=== PATIENT | male | born 1930 | race Caucasian/White ===

== ENCOUNTER 2017-09-01 08:53 | Outpatient (CLI) | payer MEDICARE, OTHER ==
[~2017-09-01] VITALS: Ht 182.9 cm; Wt 81.6 kg
[~2017-09-01 08:53] MED LIST: CHOLESTEROL PO; CLAR500T2 PO; FERR-57 PO; FERR240T9 PO; FLC1T PO; LISI40TA PO; LOVA40TA2 PO; METR500T PO; PANT20TA2 PO; WARF2.5T PO; WRF5T PO
[2017-09-01] MEDS ORDERED: WARF-48 PO ×2 (12:21)
[2017-09-01] MEDS ORDERED: LISI40TA PO (12:21)
[2017-09-01] MEDS ORDERED: FINA5TAB6 PO (12:21)
[2017-09-01] MEDS ORDERED: PANT40TA3 PO (12:21)
== END 2017-09-01 12:23 ==
LOC: PREOP 08:53
PROVIDERS: ATTEND Surgery
DX: Z01.818 Encounter for other preprocedural examination (principal); D64.9 Anemia, unspecified

== ENCOUNTER 2017-09-03 11:18 | Day surgery (SDC) | payer MEDICARE, OTHER ==
[~2017-09-03] VITALS: Ht 182.9 cm; Wt 81.6 kg
[~2017-09-03 11:18] MED LIST changes: +FINA5TAB6 PO; +PANT40TA3 PO; +WARF-48 PO
--- OUTSIDE RECORDS SUMMARY | 2017-09-03 11:26 | XMS REPORT | Continuity of Care Document ---
Author Author [facility] Organization [facility] Address Unknown Phone Unavailable Allergies Active Description Code Type Severity Reaction Onset Reported/Identified Relationship to Patient Clinical Status Yes codeine [id number] Drug Allergy Unknown N/A 02/18/2014 Medications There is no data. Problems Date Dx Coded Attending Type Code Diagnosis Diagnosed By 02/27/2014 KIM RUSS DO Ot 041.86 02/27/2014 KIM RUSS DO Ot 272.0 02/27/2014 KIM RUSS DO Ot 280.9 02/27/2014 KIM RUSS DO Ot 285.1 02/27/2014 KIM RUSS DO Ot 309.81 02/27/2014 KIM RUSS DO Ot 401.9 02/27/2014 KIM RUSS DO Ot 427.31 02/27/2014 KIM RUSS DO Ot 455.0 02/27/2014 KIM RUSS DO Ot 455.3 02/27/2014 KIM RUSS DO Ot 458.9 02/27/2014 KIM RUSS DO Ot 530.11 02/27/2014 KIM RUSS DO Ot 535.10 02/27/2014 KIM RUSS DO Ot 553.3 02/27/2014 KIM RUSS DO Ot 558.9 02/27/2014 KIM RUSS DO Ot 562.12 02/27/2014 KIM RUSS DO Ot 569.49 02/27/2014 KIM RUSS DO Ot V15.82 02/27/2014 KIM RUSS DO Ot V58.61 06/11/2014 REUBEN ASHLEY, BHARAT Sheppard Ot 492.8 06/11/2014 REUBEN ASHLEY, BHARAT Sheppard Ot 518.89 06/11/2014 REUBEN ASHLEY, BHARAT Sheppard Ot 753.10 06/11/2014 REUBEN ASHLEY, BHARAT Sheppard Ot 785.6 06/15/2014 REUBEN ASHLEY, BHARAT A Ot 492.8 06/15/2014 REUBEN ASHLEY, BHARAT A Ot 518.89 06/15/2014 REUBEN ASHLEY, BHARAT Sheppard Ot 753.10 06/15/2014 REUBEN ASHLEY, BHARAT Sheppard Ot 785.6 06/26/2014 HOWIE ASHLEY, ROXANNE S Ot 793.11 07/17/2014 HOWIE ASHLEY, ROXANNE S Ot 793.11 01/10/2015 HOWIE ASHLEY, ROXANNE S Ot 793.11 02/01/2015 HOWIE ASHLEY, ROXANNE S Ot 793.11 12/06/2015 Ot 784.7 EPISTAXIS 01/06/2016 KURT YOUNG MD Ot 427.31 ATRIAL FIBRILLATION 01/06/2016 KURT YOUNG MD Ot 578.1 BLOOD IN STOOL 01/06/2016 KURT YOUNG MD Ot V58.61 ANTICOAGULANTS,LT,CURRENT USE 02/06/2016 KURT YOUNG MD Ot 427.31 ATRIAL FIBRILLATION 02/06/2016 KURT YOUNG MD Ot 578.1 BLOOD IN STOOL 02/06/2016 KURT YOUNG MD Ot V58.61 ANTICOAGULANTS,LT,CURRENT USE 03/07/2016 Ot 784.7 EPISTAXIS 03/07/2016 KURT YOUNG MD Ot 427.31 ATRIAL FIBRILLATION 03/07/2016 KURT YOUNG MD Ot 578.1 BLOOD IN STOOL 03/07/2016 KURT YOUNG MD Ot V58.61 ANTICOAGULANTS,LT,CURRENT USE 06/07/2016 Ot 784.7 EPISTAXIS 07/08/2016 KURT YOUNG MD Ot 427.31 ATRIAL FIBRILLATION 07/08/2016 KURT YOUNG MD Ot 578.1 BLOOD IN STOOL 07/08/2016 KURT YOUNG MD Ot V58.61 ANTICOAGULANTS,LT,CURRENT USE 08/05/2016 Ot 784.7 EPISTAXIS Procedures There is no data. Results There is no data. Encounters ACCT No. Visit Date/Time Discharge Status Pt. Type Provider Facility Loc./Unit Complaint [id number] 12/03/2014 09:41:00 12/03/2014 23:59:59 CLS Outpatient ROXANNE DENISE MD [facility] RAD [id number] 05/29/2014 10:43:00 05/29/2014 23:59:59 CLS Outpatient ROXANNE DENISE MD [facility] RAD [id number] 05/10/2014 08:09:00 05/10/2014 23:59:59 CLS Outpatient BHARAT ALEXIS MD [facility] RAD [id number] 02/18/2014 19:51:00 02/27/2014 12:20:00 DIS Inpatient KIM RUSS DO [facility] SURGICAL [id number] 02/17/2014 09:50:00 02/17/2014 11:25:00 DIS Outpatient HANNAH ASHLEY, KURT Martinez [facility] ER BLOOD IN STOOL [id number] 07/14/2013 09:31:00 07/14/2013 23:59:59 CLS Outpatient [id number] 05/25/2010 14:08:00 Document Registration
[2017-09-03] MEDS ORDERED: NS IV 500 ML 500 ML ONE (11:29)
[2017-09-03] MEDS ORDERED: NS IV 500 ML 500 ML IV PRN (11:31)
[2017-09-03 11:42] VITALS: BP 164/91
[2017-09-03] MEDS ORDERED: LIDOCAINE JELLY 2% (XYLOCAINE) 5 ML TUBE MM PRN (11:45)
[2017-09-03] MEDS ORDERED: fentaNYL INJECTION 100 MCG/2 ML AMP ONE (11:45)
[2017-09-03] MEDS ORDERED: MIDAZOLAM 2 MG/2 ML (VERSED) VIAL IVP PRN (11:45)
[2017-09-03] MEDS ORDERED: MIDAZOLAM 2 MG/2 ML (VERSED) VIAL ONE ×4 (11:45→12:31)
[2017-09-03] MEDS ORDERED: HURRICAINE EXT TUBE (BENZOCAINE) XX PRN (11:45)
[2017-09-03] MEDS ORDERED: fentaNYL INJECTION 100 MCG/2 ML AMP IVP PRN (11:45)
[2017-09-03] MEDS ORDERED: LIDOCAINE JELLY 2% (XYLOCAINE) 5 ML TUBE ONE (11:46)
[2017-09-03] MEDS ORDERED: proPOfol 200 MG/20 ML (DIPRIVAN) VIAL IV ONE (12:32)
--- NOTE | 2017-09-03 12:37 | Conscious Sedation/ASA ---
Conscious Sedation Pre-Proced Time Reviewed: 12:00 ASA Class: 2 Airway Mallampati Classification: (brevig mission appropriate class) I. II. III, IV Lungs Heart ASA score ASA 1: a normal healthy patient ASA 2: a patient with a mild systemic disease (mid diabetes, controlled hypertension, obesity ASA 3: a patient with a severe systemic disease that limits activity (angina , COPD, prior Myocardial infarction) ASA 4: a patient with an incapacitating disease that is a constant threat to life (CHF, renal failure) ASA 5: a moribund patient not expected to survive 24 hrs. (ruptured aneurysm) ASA 6: a declared brain patient whose organs are being harvested. For emergent operations, add the letter E after the classification Grade 2 Sedation Plan: Analgesia, Amnesia, Plan communicated to team members, Discussed options with patient/fam, Discussed risks with patient/fam Note The patient is an appropriate candidate to undergo the planned procedure, sedation, and anesthesia. The patient immediately re-assessed prior to indication. NOA FUENTES MD Sep 03, 2017 12:37 pm
--- NOTE | 2017-09-03 12:38 | Progress Note-Pre Operative ---
Pre-Operative Progress Note H&P Reviewed The H&P was reviewed, patient examined and no changes noted. Date Seen by Provider: Sep 03, 2017 Time Seen by Provider: 12:00 Date H&P Reviewed: Sep 03, 2017 Time H&P Reviewed: 12:00 Pre-Operative Diagnosis: anemia NOA FUENTES MD Sep 03, 2017 12:38 pm
[2017-09-03] MEDS ORDERED: ACETAMINOPHEN 325 MG TABLET/CAPLET (TYLENOL) PO PRN (12:45)
[2017-09-03] MEDS ORDERED: HYDROcodone/APAP 5 MG/325 MG (LORTAB) TAB PO PRN (12:45)
[2017-09-03] MEDS ORDERED: morphine INJ 10 MG/ML 1ML (SYR OR VIAL) IV PRN (12:45)
[2017-09-03] MEDS ORDERED: ONDANSETRON 4 MG/2 ML (SDV) Z0FRAN IV PRN (12:45)
--- NOTE | 2017-09-03 13:18 | Progress Note-Post Operative ---
Post-Operative Progess Note Surgeon (s)/Retail Management Trainee (s) Surgeon NOA FUENTES MD Retail Management Trainee: none Pre-Operative Diagnosis anemia Post-Operative Diagnosis reflux esophagitis(class B), moderate HH(3-4cm), mild gastritis. chronic stage 2 ext and int hemorrhoids, small HP polyp ascending colon x2. Procedure & Operative Findings Date of Procedure 09/03/17 Procedure Performed/Findings EGD with bx. Colonoscopy with bx. Anesthesia Type MAC Estimated Blood Loss Estimated blood loss (mL): minimal Specimens/Packing Specimens Removed GE jxn, antrum, asc colon polyp x2. NOA FUENTES MD Sep 03, 2017 1:18 pm
--- NOTE | 2017-09-03 13:19 | Anesthesia-Procedure Note ---
Procedures/Interventions Procedure Start/Stop/Diagnosis Date of Procedure: Sep 03, 2017 Start Time: 12:30 Referring Physician: teresa Stop Time: 13:10 Additional Procedures Procedures Called to endoscopy to assist with MAC sedation. VSS throughout procedure. Versed 1 MG IV and Propofol 200mg IV given in total. See nurses notes for additional case info. ASA3 KALYAN SALCEDO CRNA Sep 03, 2017 13:19
[2017-09-03] MEDS ORDERED: HURRICAINE EXT TUBE (BENZOCAINE) ONE (13:20)
--- NOTE | 2017-09-03 13:20 | Discharge Inst-Surgical ---
D/C Lap Instructions-GINA Follow Up PRN Activity as tolerated High Fiber Diet 25g or more per day Avoid Alcohol, Caffeine, Spicy [place] and Acid foods. Drink 64 fluid oz or more of fluids per day. Symptoms to Report: Fever over 101 degree F, Nausea/Vomiting If any problems/questions: Contact your physician or go to Emergency Room NOA FUENTES MD Sep 03, 2017 1:20 pm
[2017-09-03 13:30] VITALS: BP 139/91
[2017-09-03 13:55] VITALS: BP 124/80
--- NOTE | 2017-09-03 14:09 | Anesthesia-General Post-Op ---
MAC Patient Condition Mental Status/LOC: Same as Preop Cardiovascular: Satisfactory Nausea/Vomiting: Absent Respiratory: Satisfactory Pain: Controlled Complications: Absent Post Op Complications Complications None Follow Up Care/Instructions Patient Instructions None needed. Anesthesiology Discharge Order Discharge Order Patient is doing well, no complaints, stable vital signs, no apparent adverse anesthesia problems. No complications reported per nursing. KALYAN SALCEDO CRNA Sep 03, 2017 14:09
[2017-09-03 14:10] VITALS: BP 124/80
--- NOTE | 2017-09-03 15:52 | OPERATIVE REPORT ---
DATE OF SERVICE: 09/03/2017 ATTENDING PRIMARY CARE PHYSICIAN: Jimmy Ford DO. PREOPERATIVE DIAGNOSIS: Anemia. POSTOPERATIVE DIAGNOSES: Reflux esophagitis class B, moderate sized hiatal hernia approximately 3 to 4 cm in size, mild gastritis. Chronic stage II external hemorrhoids. Two small hyperplastic polyps of the ascending colon. PROCEDURE: EGD with biopsy, colonoscopy with biopsy. SURGEON: Noa Fuentes MD. ANESTHESIA: Monitored anesthesia care. ESTIMATED BLOOD LOSS: Minimal. FINDINGS: EGD, reflux esophagitis class B with no ulcers or strictures. There was a moderate sized hiatal hernia approximately 3 to 4 cm in size. There were no Boaz's ulcers or any active bleeding. Mild gastritis with no ulcers, polyps or any neoplasms identified. Pylorus and duodenum appeared normal. Colonoscopy, chronic stage II external and internal hemorrhoids. Two small hyperplastic polyps of the ascending colon, both approximately 2 mm in size. There were no mucosal inflammatory changes or any active bleeding sources identified. DISPOSITION: The patient tolerated the procedure well. INDICATIONS: The patient is an 86-year-old male who we have seen before in the past. He did have anemia as well as elevation of INR and was seen in the ICU on 02/20/2014. He was found to have a reflux esophagitis class B, hiatal hernia approximately 2 cm in size as well as mild gastritis. Colonoscopy showed chronic stage II external and internal hemorrhoids as well as colitis involving the sigmoid and descending colon as well as the transverse colon. No other abnormalities detected. He was referred over to us for a 2-week history of dark tarry stools. He also reports that he has had some issues with constipation. He had a blood work drawn, which did show hemoglobin 7.2. DESCRIPTION OF PROCEDURE: The patient was brought to the endoscopy suite, laid in the left lateral decubitus position. After adequate IV pain and sedative medications and monitored anesthesia care administered by anesthesia, the mouthpiece was applied. Endoscope was placed in the mouth, visualizing the pharynx and hypopharyngeal region. Vocal cords, epiglottis and vallecula identified and appeared to be normal. The endoscope was then gently intubated in the esophageal opening and esophagus insufflated. Endoscope was then advanced to the first, second and third portion of the esophagus to the level of the GE junction, a reflux esophagitis class B identified. There were no ulcers or strictures identified in this region. The GE junction was also intrathoracic consistent with a hiatal hernia. A biopsy was taken with forceps with visualization of good hemostasis. The endoscope was then easily advanced in the stomach and endoscope retroflexed, visualizing a hiatal hernia approximately 3 to 4 cm in size. This appears to be a type 1 sliding hiatal hernia. There were no Boaz's ulcers to indicate any bleeding sources. There was a mild gastritis; however, no ulcers, polyps or any neoplasms identified. A biopsy was taken of stomach antrum with forceps with visualization of good hemostasis. The endoscope was then advanced to the pylorus and the first and second portion of the duodenum, which appeared normal. The endoscope was then slowly withdrawn while taking a second look and suctioning of residual air with no additional findings. The patient tolerated this portion of the procedure well. We will recommend continued medical management with avoidance of caffeinated beverages, spicy, greasy and acidic foods as well as continue to take Protonix on a daily basis. Under the same monitored anesthesia care, we then proceeded with the colonoscopy portion of the procedure. A digital rectal examination was performed. Chronic stage II external and internal hemorrhoids were identified, which were not actively edematous nor inflamed and no bleeding. Normal sphincter tone was felt and there were no palpable masses. Prostate gland was firm; however, this was most likely secondary to a TURP procedure. The endoscope was then intubated to the anus and the rectum gently insufflated. No mucosal inflammatory changes to indicate any proctitis. The endoscope was then advanced to the sigmoid colon where no diverticulosis identified. The endoscope was then advanced to the remainder of the descending, transverse, ascending colon and the cecum. These segments were normal. There were no mucosal inflammatory changes to indicate any active colitis or proctitis as well as no active bleeding. There were two small polyps identified of the ascending colon, which were both benign in appearance and hyperplastic and both approximately 2 mm in size. These were biopsied and destroyed using forceps and electrocautery with visualization of good hemostasis. Endoscope was then slowly withdrawn while taking a second look and suctioning residual air with no additional findings. The patient tolerated the procedure well. We will have him continue with medical management with a high-fiber diet with at least 30 grams of fiber per day as well as at least 64 fluid ounces of water daily to promote soft stools on a daily basis. We will have him follow up p.r.n. from the standpoint of colonoscopies. Job ID: [id number] DocumentID: [id number] Dictated Date: 09/03/2017 13:28:36 Banquet Lead Date: 09/03/2017 15:51:47 Dictated By: NOA FUENTES MD
== END 2017-09-03 14:05 | disposition home or self-care (01) ==
LOC: ENDO 11:18
PROVIDERS: ATTEND Surgery
DX: K63.5 Polyp of colon (principal); K64.1 Second degree hemorrhoids; K21.0 Gastro-esophageal reflux disease with esophagitis; K44.9 Diaphragmatic hernia without obstruction or gangrene; K29.70 Gastritis, unspecified, without bleeding; D64.9 Anemia, unspecified; I10 Essential (primary) hypertension; E78.00 Pure hypercholesterolemia, unspecified; I48.91 Unspecified atrial fibrillation; N40.0 Benign prostatic hyperplasia without lower urinary tract symptoms; Z79.01 Long term (current) use of anticoagulants; Z79.899 Other long term (current) drug therapy

== ENCOUNTER 2017-09-10 11:43 | Outpatient (CLI) | payer MEDICARE, OTHER ==
[~2017-09-10] VITALS: Ht 182.9 cm; Wt 81.6 kg
[2017-09-10] VITALS (12 sets, daily range): BP systolic 132–174; BP diastolic 77–107
[2017-09-10 15:31] LABS: HEMOGLOBIN 8.1 G/DL (13.3-17.7)
[2017-09-10 17:16] LABS: HEMOGLOBIN 9.8 G/DL (13.3-17.7)
== END 2017-09-10 17:00 | disposition home or self-care (01) ==
LOC: SDC 11:43
PROVIDERS: ATTEND Internal Medicine
DX: D62 Acute posthemorrhagic anemia (principal)
CPT/HCPCS: 36415; 36430; 85014; 85018; 86850; 86900; 86901; 86920